=== PATIENT | female | born 1955 | race Caucasian/White ===

== ENCOUNTER 2017-02-21 17:13 | Emergency (ER) | payer OTHER ==
[2017-02-21 17:28] VITALS: BP 165/95; TEMP 97.5; O2SAT 98
--- NOTE | 2017-02-21 17:50 | ED.PDOC ---
History of Present Illness - General Chief Complaint: Lower Extremity Injury Stated Complaint: LEFT KNEE PAIN SINCE TUESDAY Time Seen by Provider: 02/21/17 17:48 Source: patient Exam Limitations: no limitations - History of Present Illness Initial Comments: The patient is a 61-year-old female presenting to the emergency room secondary to pain in her left knee that has been present for the last several days. She has had chronic problems with the knee but twisted it while up on a cabinet the other day. She has had pain to thelateral aspect of the knee primarily. The knee has not given out. She is neurovascularly preserved distally. There is mild swelling of the knee. No obvious bruising. Range of motion of the hip and the ankle are preserved. Tenderness to palpation is primarily over the lateral collateral ligament. Stressing the knee joint itself does not cause much pain. She also has some mild tenderness to palpation over the medial hamstring insertion. No crepitus.. Timing/Duration: constant Severity: moderate Improving Factors: immobilization Worsening Factors: movement Associated Symptoms: denies symptoms Allergies/Adverse Reactions: Allergies Cefazolin [From Ancef] Allergy (Unknown, Verified 02/21/17 17:23) Cephalosporins Allergy (Unknown, Verified 02/21/17 17:23) Metoclopramide [From Reglan] Allergy (Unknown, Verified 02/21/17 17:23) SEAFOOD Allergy (Unknown, Uncoded 02/21/17 17:23) Home Medications: Ambulatory Orders [id number]-[id number]-Ksdgeefjex [Fioricet] 1 ea PO Q8H PRN #21 tab 02/21/17 Review of Systems - Review of Systems Review of Systems: 02/21/17 17:50 eview of systems is for new symptoms Constitutional: States: no symptoms reported EENTM: States: no symptoms reported Respiratory: States: no symptoms reported Cardiology: States: no symptoms reported Gastrointestinal/Abdominal: States: no symptoms reported Genitourinary: States: no symptoms reported Musculoskeletal: States: joint pain, muscle pain Skin: States: no symptoms reported Neurological: States: no symptoms reported All other Systems: No Change from Baseline Past Medical History (General) - Patient Medical History Hx Seizures: No Hx Stroke: No Hx Dementia: No Hx Asthma: No Hx of COPD: No Hx Cardiac Disorders: No Hx Congestive Heart Failure: No Hx Pacemaker: No Hx Hypertension: No Hx Thyroid Disease: No Hx Diabetes: No Hx Gastroesophageal Reflux: Yes Hx Renal Disease: No Hx Cancer: No Hx of HIV: No Hx Hepatitis C: No Hx MRSA: No Surgical History: cholecystectomy, tonsillectomy - Vaccination History Hx Tetanus, Diphtheria Vaccination: No Hx Influenza Vaccination: No Hx Pneumococcal Vaccination: No Immunizations Up to Date: No - Social History Hx Tobacco Use: No Hx Chewing Tobacco Use: No Hx Alcohol Use: No Hx Substance Use: No Hx Substance Use Treatment: No Hx Depression: No Feels Threatened In Home Enviroment: No Feels Threatened In a Relationship: No Hx Physical Abuse: No Hx Emotional Abuse: No Hx Suspected Abuse: No - Activities of Daily Living Hospice Agency (if applicable):: None - Female History Patient is a Female of Child Bearing Age (10 -59 yrs old): No Patient : No Family Medical History - Family History Mother Family History: No Known Living Status: Physical Exam - Physical Exam General Appearance: Alert, Anxious, No apparent distress Eye Exam: bilateral normal Ears, Nose, Throat: hearing grossly normal, normal pharynx Respiratory: no respiratory distress, no accessory muscle use Cardiovascular/Chest: normal peripheral pulses, no edema Peripheral Pulses: dorsalis pedis,right: 2+, dorsalis pedis,left: 2+, posterior tibialis,right: 2+, posterior tibialis,left: 2+ Rectal Exam: deferred Extremity: normal range of motion, no pedal edema, no calf tenderness, normal capillary refill, other - see history of present illness. 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 Primarily she appears to have strained the lateral collateral ligament. She also has a mild medial hamstring strain. She can take Aleve 1 tablet twice daily for the next week. She is being placed in a knee immobilizer for now. She needs to be reevaluated by her primary care doctor in 1 week. she'll be written for Fioricet additionally for pain control as needed. ER warnings were given for any acute worsening. Departure - Departure Clinical Impression: Sprain of knee Qualifiers: Encounter type: initial encounter Involved ligament of knee: lateral collateral ligament Laterality: left Qualified Code(s): S83.422A - Sprain of lateral collateral ligament of left knee, initial encounter Disposition: Discharge to Home or Self Care Condition: Fair Departure Forms: ED Discharge - Pt. Copy, Patient Portal Self Enrollment Instructions: DI for Knee Sprain Diet: regular diet Activity: no pushing/pulling with affected limb Referrals: Brian Reese MD [Primary Care Provider] - 1-2 Weeks Prescriptions: Dosyewsoojrga-Hesb-Qwacnzjuay [Fioricet] 1 ea PO Q8H PRN #21 tab PRN Reason: Pain Home Medications: Ambulatory Orders Qfbzlgufsaotp-Ynvq-Nwyuxepseg [Fioricet] 1 ea PO Q8H PRN #21 tab 02/21/17 Additional Instructions: the patient is a 61-year-old female presenting to the emergency room secondary to a left knee strain. Primarily she appears to have strained the lateral collateral ligament. She also has a mild medial hamstring strain. She can take Aleve 1 tablet twice daily for the next week. She is being placed in a knee immobilizer for now. She needs to be reevaluated by her primary care doctor in 1 week. she'll be written for Fioricet additionally for pain control as needed. ER warnings were given for any acute worsening.
== END 2017-02-21 18:47 | disposition home or self-care (01) ==
LOC: ER 17:13
DX: S83.422A Sprain of lateral collateral ligament of left knee, initial encounter (principal); K21.9 Gastro-esophageal reflux disease without esophagitis; Z88.8 Allergy status to other drugs, medicaments and biological substances; Z91.013 Allergy to seafood; X50.1XXA Overexertion from prolonged static or awkward postures, initial encounter; Y92.9 Unspecified place or not applicable

== ENCOUNTER → 2017-06-02 | Outpatient (CLI) | payer OTHER | END | disposition home or self-care (01) | LOC: RAD 14:07 | PROVIDERS: ATTEND Nurse Practitioner Family | DX: S92.503A Displaced unspecified fracture of unspecified lesser toe(s), initial encounter for closed fracture (principal); X58.XXXA Exposure to other specified factors, initial encounter ==